=== PATIENT | female | born 1995 | race Caucasian/White ===

== ENCOUNTER 2017-02-04 02:40 | Inpatient (IN) | payer OTHER ==
[2017-02-04] VITALS (52 sets, daily range): BP systolic 111–143; BP diastolic 57–88; PULSE 62–108; TEMP 98.1–99.4
[~2017-02-04] VITALS: Ht 165.1 cm; Wt 77.3 kg
--- NOTE | 2017-02-04 02:40 | NUR ---
0240 G1LO 39.1 WEEK GEST TO LR3 WITH C/O SROM. EFM ON. SVE DONE WITH NEG AMNIOTRACE AND NO AMNIOTIC FLUID NOTED. ADM ASSESSMENT DONE. CONTRACTIONS EVERY 5- 10 MINUTES AND FEELS ONLY SOME OF THE CONTRACIONS.
[2017-02-04] MEDS ORDERED: PRENATAL MVI PO (03:04)
[2017-02-04] MEDS ORDERED: NATURAL IRON65 MG PO (03:05)
--- NOTE | 2017-02-04 03:35 | NUR ---
0335 EFM OFF. PAD AND PANTIES ON AND UP AMB IN HALLWAY
--- NOTE | 2017-02-04 04:00 | NUR ---
0400 RETURNED TO BED. NO FLUID NOTED ON V-PAD WHILE AMB. EFM ON. SVE DONE AND AMNIOTRACE DONE WITH SL DARK BLUE NOTED AROUND EDGE OF Q-TIP. NO FLUID NOTED BUT INTRIOITUS MOIST. 0405 DR METZ NOTIFIED OF PT ADM, COMPLAINT, AMNIOTRACE AND SVE X2 AND CONTRACTION PATTERN. ORDER TO DO AMNIOSURE 0420 DR METZ NOTIFIED AMNIOSURE IS POSITIVE. ORDERS RECEIVED TO ADMIT, START PEN G AND START PITOCIN PER PROTOCOL THIS AM.
--- NOTE | 2017-02-04 05:10 | NUR ---
0510 IV STARTED AND LAB DRAWN. IV PEN G STARTED PER PROTOCOL
[2017-02-04 05:45] LABS: BASO % 0.2 % (0.0-2.0); EOS # 0.2 (0.0-0.7); EOS % 1.6 % (0-4.0); GRAN # 7.1 (1.4-6.5); GRAN % 75.1 % (42.2-75.2); LYMPH # 1.4 (1.2-3.4); LYMPH % 14.8 % (20.0-51.0); MEAN CELL VOLUME 84 fl (80.0-100.0); MEAN CORPUSCULAR HGB CONC 33 g/dl (33.0-37.0); MEAN PLATELET VOLUME 10.4 fl (7.4-10.4); MONO # 0.7 (0.1-0.6); MONO % 7.3 % (1.7-9.3); PLATELET COUNT 207 K/mm3 (130-400); RED BLOOD COUNT 3.92 M/mm3 (4.10-5.30); REDCELL DISTRIBUTION WIDTH-CV 14.4 % (11.5-14.5)
[2017-02-04 05:47] LABS: HEMOGLOBIN 10.9 g/dl (12.5-16.0); MEAN CORPUSCULAR HEMOGLOBIN 28 pg (27.0-31.0)
--- NOTE | 2017-02-04 08:23 | NUR ---
0823: Dr. Luke at bedside for evaluation of pt. 0825: AROM remaining bag of water by Dr. Luke. Clear fluid. SVE 3-4/80/-2. Call light within reach. Will continue to monitor.
--- NOTE | 2017-02-04 10:34 | NUR ---
1034: Pt up on birthing ball. 1040: BP noted to be 77/39. Retake BP 70/29. Pt denies feeling dizzy or light headed. Reports breathing harder through contractions. Pt assisted back to bed. BP 129/79. Call light within reach. Will continue to monitor.
--- NOTE | 2017-02-04 12:20 | NUR ---
1220: Pt sititng up on edge of bed for epidural placement. 1224: René Luu CRNA, at bedside for epidural placement. Explains procedure to pt. Pt verbalizes understanding. Difficulty tracing FHR due to maternal position. 1235: Test dose administered by René Luu CRNA. No adverse effects noted. 1240: Pt repositioned to wedge left. Call light within reach. Will continue to monitor.
--- NOTE | 2017-02-04 13:00 | NUR ---
Dr. Luke at bedside for evaluation of pt. SVE /-2. Call light within reach. Will continue to monitor.
--- NOTE | 2017-02-04 15:46 | NUR ---
1546: SVE 2. 1549: Smart catheter removed. 1552: Dr. Luke notified. 1613: Dr. Luke at bedside for delivery. 1618: Pt attempts first push per instruction. 1629: Spontaneous vaginal delivery of viable male infant by Dr. Luke. Infant to mother's chest and assessed by nursery RN. 1639: Spontaneous vaginal delivery of placenta by Dr. Luke. Pitocin bolus infusing. Mole removed from left buttocks by Dr. Luke and sent to pathology. Bilateral labial lacerations and superficial perineal laceration repaired by Dr. Luke. Pt tolerated well. Fundus firm. Bleeding controlled. Plan of care explained to pt. Call light within reach. Will continue to monitor.
--- NOTE | 2017-02-04 19:45 | NUR ---
PT. REQUESTS TO GET UP TO BR. ABLE TO LIFT BOTH LEGS OFF BED. IV TO INT. AMB TO BR WITH STAFF SBA, GAIT STEADY, VOIDS IN HAT, GOWN CHANGED, NEW PAD AND MESH PANTIES APPLIED. PT. TAUGHT HOW TO DO REI CARE AND VERBALIZES UNDERSTANDING. PT. TO RM 218 BY W/C DUE TO LONG WALK AND PT. C/O BACK AND BOTTOM STILL SLIGHTLY NUMB. ALL BELONGINGS TO RM 218. PT. ORIENTED TO RM, BR, CALL LIGHT, BED. INSTRUCTED NOT TO GET OOB WITHOUT ASSIST. PT. VERBALIZES UNDERSTANDING. CALL LIGHT IN REACH.
[2017-02-05 03:00] VITALS: BP 114/57; PULSE 75; TEMP 98.6
[2017-02-05 09:40] VITALS: BP 126/63; PULSE 80; TEMP 98.6
--- NOTE | 2017-02-05 09:54 | NUR ---
Initial visit attempt; Family resting, Dental Insurance Coordinator left card of congratulations and God's blessings on the of their son.
[2017-02-05 12:00] VITALS: BP 122/67; PULSE 78; TEMP 98.6
[2017-02-05 16:35] VITALS: BP 119/62; PULSE 94; TEMP 98.8
--- NOTE | 2017-02-05 18:30 | NUR ---
Report recieved. Ordered dinner. Updated whiteboard and reviewed POC. Discharge education videos to bedside. Denied questions or concerns.
[2017-02-05 20:40] VITALS: BP 113/74; PULSE 74; TEMP 97.9
[2017-02-06 08:00] VITALS: BP 110/88; PULSE 86; TEMP 98.6
[2017-02-06] MEDS ORDERED: IBU600 MG PO (10:29)
--- NOTE | 2017-02-06 14:37 | NUR ---
1000 LC IN TO SEE PT AND INSTRUCTIONS FOR FEEDING . 1100 IN TO CHECK ON PT AND STATES REFUSED TO SUCK TO PUT BACK IN CRIB. ENC TO FEED BUT REFUSED AT THIS TIME. 1215 FINAL HOME CARE INSTRUCTIONS REVIEWED WITH PT. [facility] INVITED AND ANSWERED. 1250 DISMISSED AMB TO SELF CARE WITH . DENIES FURTHER QUESTIONS OR CONCERNS AT THIS TIME.
== END 2017-02-06 12:50 | disposition home or self-care (01) | DRG 983 ==
LOC: LDRO 02:40 → LDR 02:41 → OB 02:41 → LDRO 02-10 10:52
PROVIDERS: Obstetrics & Gynecology; ADMIT Obstetrics & Gynecology
PROC: 10E0XZZ Delivery of Products of Conception, External Approach (ICD-10-PCS; principal; 2017-02-04)
PROC: 0HB8XZZ Excision of Buttock Skin, External Approach (ICD-10-PCS; 2017-02-04)
PROC: 0HQ9XZZ Repair Perineum Skin, External Approach (ICD-10-PCS; 2017-02-04)
DX: O99.824 Streptococcus B carrier state complicating childbirth (principal); O99.02 Anemia complicating childbirth; D64.9 Anemia, unspecified; O75.89 Other specified complications of labor and delivery; D22.5 Melanocytic nevi of trunk; O70.0 First degree perineal laceration during delivery; Z3A.39 39 weeks gestation of pregnancy; Z37.0 Single live birth
CPT/HCPCS: J2540; J2590; J7120